=== PATIENT | female | born 2000 | race Caucasian/White ===

== ENCOUNTER → 2022-04-03 16:07 | Outpatient (CLI) | payer OTHER, SELFPAY ==
--- NOTE | 2022-04-03 16:10 | DI.ECHO.S_ITS ---
[facility] +---------+ : : [address] : [place] : : : : [id number] : : : : Phone: [phone]+ Echocardiogram Report + + :Name: CRYSTAL LOUIS Study Date: 04/03/2022 Height: 65 in : :[facility] ReadingLocation: Weight: 157 lb : : Gender: Female BSA: 1.8 m2 : :: 2000 Age: 21 yrs BP: 125/87 mmHg: :Reason For Study: DYSPNEA : :Ordering Physician: RANI, : :RG Performed By: Anna Birggs : :Referring: RG BUI : + + Interpretation Summary 1) Normal left ventricular thickness, size, wall motion, and systolic function (EF 60-65%). 2) Normal right ventricular size and function. 3) No significant valvular abnormalities. 4) No prior Echo available for comparison. Procedure: A two-dimensional transthoracic echocardiogram with color flow and Doppler was performed. The study quality was technically adequate. There is no prior echocardiogram noted for this patient. The patient was in sinus rhythm with heart rates between 72-92 bpm during the exam. Left Ventricle: The left ventricle is normal in size and wall thickness. The ejection fraction is estimated to be 60-65%. Left ventricular systolic function appears normal without focal wall motion abnormalities. Right Ventricle: The right ventricle is normal in size and function. Atria: The left atrial size is normal. Right atrial size is normal. There is no Doppler evidence for an interatrial shunt. Mitral Valve: The mitral valve is normal in structure and function. There is trace mitral regurgitation. Aortic Valve: The aortic valve is trileaflet. The aortic valve opens well. There is no aortic valve stenosis. There is no aortic regurgitation. Tricuspid Valve: The tricuspid valve is normal in structure and function. There is mild tricuspid regurgitation. The right ventricular systolic pressure is estimated to be at least 17 mmHg based on an estimated right atrial pressure of 3 mm Hg. Pulmonic Valve: The pulmonic valve leaflets are thin and pliable; valve motion is normal. There is trace pulmonic regurgitation. Great Vessels: The aortic root is normal size. The dimensions of the ascending aorta are normal. The IVC is of normal diameter and collapses greater than 50% with a sniff. This suggests a low right atrial pressure of 3 mm Hg. Pericardium/ Pleura There is no pericardial effusion. There is no pleural effusion. MMode/2D Measurements & Calculations LVIDd: 4.4 cm LVOT diam: 2.0 cm LVIDs: 3.0 cm Ao root diam: 2.7 cm FS: 30.6 % asc Aorta Diam: 2.6 cm IVSd: 0.66 cm Ao Arch Diam (Prox Trans): 2.2 cm LVPWd: 0.75 cm LV montague. diameter/BSA (cm/m^2): 2.5 LV sys. diameter/BSA (cm/m^2): 1.7 LA A2 area: 15.0 cm2 RA long axis: 3.6 cm LA A4 area: 16.1 cm2 RA area: 10.2 cm2 LA length (vol): 4.4 cm RA vol: 24.4 ml LA vol: 46.4 ml RA : 13.7 ml/m2 LA vol index: 26.0 ml/m2 IVC diam: 1.4 cm RVD1 (basal): 3.2 cm RVD2 (mid): 3.1 cm TAPSE: 2.0 cm Doppler Measurements & Calculations Ao V2 max: 128.0 cm/sec LVOT Max Alan: 86.1 cm/sec Ao V2 mean: 90.2 cm/sec LV V1 max P.0 mmHg Ao max P.6 mmHg LV V1 VTI: 17.5 cm Ao mean P.6 mmHg REBECCA(I,D): 2.4 cm2 Ao V2 VTI: 23.0 cm REBECCA(V,D): 2.1 cm2 sev ratio: 0.76 REBECCA indexed to BSA (cm^2/m^2): 1.4 MV E max alan: 85.3 cm/sec TR max alan: 186.6 cm/sec MV A max alan: 50.4 cm/sec TR max P.9 mmHg MV E/A: 1.7 PA V2 max: 103.3 cm/sec Med Peak E' Alan: 13.4 cm/sec PA V2 mean: 65.0 cm/sec E/E' med: 6.4 PA mean P.0 mmHg Lat Peak E' Alan: 21.5 cm/sec PA pr(Accel): 17.3 mmHg E/E' lat: 4.0 E/e' average: 5.2 MV dec time: 0.19 sec SV(LVOT): 55.9 ml Reading Physician:05:04 PM
== END ==
PROVIDERS: Referring Provider Internal Medicine Cardiovascular Disease; Visit Provider Internal Medicine Cardiovascular Disease
DX: I07.1 Rheumatic tricuspid insufficiency (principal); R06.00 Dyspnea, unspecified
CPT/HCPCS: 93306

== ENCOUNTER 2022-11-17 17:53 | Emergency (ER) | payer OTHER, SELFPAY ==
[2022-11-17 18:02] VITALS: BP 137/66; PULSE 102; RESP 16; TEMP 36.8; O2SAT 100; BMI 28.6
--- NOTE | 2022-11-17 18:12 | DI.US.S_ITS ---
PROCEDURE: US OB <= 14 WEEKS FETUS INDICATIONS: FIRST TRIMESTER VAGINAL BLEEDING TECHNIQUE: Real-time scanning was performed of the fetus and maternal pelvic organs, with image documentation. Endovaginal scanning was also performed to better visualize the fetus and maternal ovaries. COMPARISON: None. FINDINGS: No evidence of intrauterine . Normal size and appearance of the uterus. Normal thickness endometrium. Ovaries normal. IMPRESSION: Normal exam with no evidence of intrauterine . We strive to produce accurate, complete, and clear reports of imaging services. To assist us in improving patient care, this report was composed using standard report templates and voice recognition software. Therefore, it may contain abnormal punctuation, insertions and/or omissions. Occasional wrong-word or sound-alike substitutions may occur. Though we review the report and make efforts to correct it, we do recommend that the report be read carefully in proper context to recognize any text inaccuracies. Dictated by: Juan Alberto Rodriguez M.D. on 11/17/2022 at 19:02 Approved by: Juan Alberto Rodriguez M.D. on 11/17/2022 at 19:03
[2022-11-17 19:24] VITALS: PULSE 99; O2SAT 98
[2022-11-17 19:25] VITALS: BP 132/83; PULSE 98; O2SAT 100
--- NOTE | 2022-11-17 19:28 | PC.NURSE ---
Pt reports hx of 2 prior miscarriages in May of 2022 and December of 2021.
[2022-11-17 19:29] LABS: Blood Urea Nitrogen 19 mg/dL (7-17); Calcium 9.5 mg/dL (8.4-10.2); Carbon Dioxide 24 mmol/L (22-32); Chloride 103 mmol/L (98-107); Estimated Glomerular Filt Rate > 60 mL/min (>60); Glucose 91 mg/dL (70-100); HEMOLYSIS < 15 (0-50); Potassium 3.9 mmol/L (3.4-5.1); Sodium 141 mmol/L (137-145)
[2022-11-17 19:36] LABS: Add Manual Diff / Slide Review NO; Basophils Absolute Auto 100 /uL (0-100); Basophils Percent Auto 1.1 % (0-2); Eosinophils Absolute Auto 300 /uL (0-450); Eosinophils Percent Auto 3.7 % (2-4); Hematocrit 42.2 % (36-46); Hemoglobin 14.4 g/dL (12.0-16.0); Lymphocytes Absolute Auto 2600 /uL (1100-4500); Lymphocytes Percent Auto 32.8 % (25-40); Mean Corpuscular HGB Conc 34.1 % (30-36); Mean Corpuscular Hemoglobin 29.3 PG (26-34); Mean Corpuscular Volume 85.9 fL (80-100); Monocytes Absolute Auto 700 /uL (0-900); Monocytes Percent Auto 9.4 % (3-14); Neutrophils Absolute Auto 4200 /uL (1500-7000); Platelet Count 279 X10^3/uL (150-400); Red Blood Cell Count 4.91 X10^6/uL (4.0-5.2); Red Cell Distribution Width 13.6 % (11.6-14.8); White Blood Cell Count 7.9 X10^3/uL (4.5-11.0)
[2022-11-17 19:46] LABS: HCG Quantitative /Beta subunit < 2.4 mIU/mL
--- NOTE | 2022-11-17 20:31 | ED.GENADULT ---
HPI - General Adult General Chief complaint: Vaginal Bleeding Stated complaint: Thinks having miscarriage Time Seen by Provider: 11/17/22 19:38 Source: patient Mode of arrival: Ambulatory Limitations: no limitations History of Present Illness HPI narrative: Patient is an otherwise healthy 22-year-old female. Is a who states that she is approximately 5 weeks EGA secondary to her last menstrual period. She had an initial positive home test last week. For the past couple days she has had some very minor spotting which she states is less than a menstrual cycle but started to have some cramping earlier today. No GI symptoms. No urinary symptoms. No vomiting. No fevers. Her prior 2 pregnancies ended in a spontaneous miscarriage Related Data Home Medications Medication Instructions Recorded Confirmed etonogestrel 68 mg subdermal 1 implant subdermal CONT 04/20/22 06/14/22 implant (Nexplanon) Allergies Allergy/AdvReac Type Severity Reaction Status Date / Time bendaryl AdvReac Mild racing Uncoded 11/17/22 18:02 heart Review of Systems Constitutional Constitutional: Reports system reviewed and no additional complaints, except as documented Gastrointestinal Gastrointestinal: Reports system reviewed and no additional complaints, except as documented Genitourinary Genitourinary: Reports system reviewed and no additional complaints, except as documented Patient History Medical History Lymph node disorder Miscarriage Social History household members: spouse Smoking Status: Never smoker Smoking Status: Never smoker Substance Use Type: does not use Exam Initial Vital Signs Initial Vital Signs: Vital Signs Temperature 98.2 F 11/17/22 18:02 Pulse Rate 102 H 11/17/22 18:02 Respiratory Rate 16 11/17/22 18:02 Blood Pressure 137/66 11/17/22 18:02 Pulse Oximetry 100 11/17/22 18:02 Oxygen Delivery Method 11/17/22 18:02 HENMD Head: normal to inspection and normocephalic GI Inspection: normal to inspection Skin General: no rashes or lesions noted Neuro General: patient alert, patient awake and moves all extremities Extrem General: capillary refill normal Course Orders Ordered: ED Orders 11/17/22 18:12 US OB <= 14 weeks fetus Stat 11/17/22 19:12 ABO RH Type Stat Basic Metabolic Panel Stat Complete Blood Count AUTO DIFF Stat HCG Quantitative /Beta subunit Stat Vital Signs Vital signs: Vital Signs - 8 hr 11/17/22 18:02 11/17/22 19:24 11/17/22 19:25 Temperature 98.2 F Pulse Rate 102 H 99 H Respiratory Rate 16 Blood Pressure 137/66 132/83 Pulse Oximetry 100 98 Oxygen Delivery Method Room Air 11/17/22 19:25 11/17/22 20:51 Temperature Pulse Rate 98 H 76 Respiratory Rate Blood Pressure 121/75 Pulse Oximetry 100 100 Oxygen Delivery Method Room Air Medical Decision Making Differential Diagnosis Differential Diagnosis: Ectopic, miscarriage, threatened , and others Condition is:: Well Controlled Condition is at treatment goal?: Yes Lab Data Lab results reviewed: Yes I reviewed the patient's lab results. Result diagrams: 11/17/22 19:12 11/17/22 19:12 Labs: Lab Results 11/17/22 11/17/22 11/17/22 Range/Units 19:12 19:12 19:12 WBC 7.9 (4.5-11.0) X10^3/uL RBC 4.91 (4.0-5.2) X10^6/uL Hgb 14.4 (12.0-16.0) g/dL Hct 42.2 (36-46) % MCV 85.9 (80-100) fL MCH 29.3 (26-34) PG MCHC 34.1 (30-36) % RDW 13.6 (11.6-14.8) % Plt Count 279 (150-400) X10^3/uL Neut % (Auto) 53.0 (50-75) % Lymph % (Auto) 32.8 (25-40) % [place] % (Auto) 9.4 (3-14) % Eos % (Auto) 3.7 (2-4) % Baso % (Auto) 1.1 (0-2) % Neut # (Auto) 4200 (3261-1797) /uL Lymph # (Auto) 2600 (0956-0065) /uL [place] # (Auto) 700 (0-900) /uL Eos # (Auto) 300 (0-450) /uL Baso # (Auto) 100 (0-100) /uL Sodium 141 (137-145) mmol/L Potassium 3.9 (3.4-5.1) mmol/L Chloride 103 (98-107) mmol/L Carbon Dioxide 24 (22-32) mmol/L BUN 19 H (7-17) mg/dL Creatinine 0.73 (0.52-1.04) mg/dL Estimated GFR > 60 (>60) mL/min BUN/Creatinine Ratio 26.0 H (6-22) Glucose 91 (70-100) mg/dL Calcium 9.5 (8.4-10.2) mg/dL HCG, Quant < 2.4 mIU/mL Blood Type B Positive Point of Care Testing Test Results Negative Urine Dip Bedside Urine Glucose Negative Bedside Urine Bilirubin - Negative Bedside Urine Ketone - Negative Urine Specific [place] 1.03 Bedside Urine Occult Blood - Negative Bedside Urine pH 6.0 Bedside Urine Protein - Negative Bedside Urine Urobilinogen - Negative Bedside Urine Nitrite - Negative Bedside Urine Leukocytes - Negative Esterase Point of care testing: Point of Care Testing Test Results Negative Urine Dip Bedside Urine Glucose Negative Bedside Urine Bilirubin - Negative Bedside Urine Ketone - Negative Urine Specific [place] 1.03 Bedside Urine Occult Blood - Negative Bedside Urine pH 6.0 Bedside Urine Protein - Negative Bedside Urine Urobilinogen - Negative Bedside Urine Nitrite - Negative Bedside Urine Leukocytes - Negative Esterase Imaging Data US - OB: Radiologist's Impression: [place] [address] Ultrasound Report Signed Patient: Rika Medrano MR#: [id number] : 2000 Acct:[id number] Age/Sex: 22 / F Date of Service: 11/17/22 Loc: ED Accession Number: [id number] ?? Procedure: US OB <= 14 weeks fetus Ordering Provider: Eduardo Morrison D.O. PROCEDURE:? US OB <= 14 WEEKS FETUS ? INDICATIONS:? FIRST TRIMESTER VAGINAL BLEEDING ? TECHNIQUE:? Real-time scanning was performed of the fetus and maternal pelvic organs, with image documentation.? Endovaginal scanning was also performed to better visualize the fetus and maternal ovaries.? ? COMPARISON:? None. ? FINDINGS:? ? No evidence of intrauterine .? Normal size and appearance of the uterus.? Normal thickness endometrium.? Ovaries normal. ? ? IMPRESSION:? Normal exam with no evidence of intrauterine . ? We strive to produce accurate, complete, and clear reports of imaging services. To assist us in improving patient care, this report was composed using standard report templates and voice recognition software. Therefore, it may contain abnormal punctuation, insertions and/or omissions. Occasional wrong-word or sound-alike substitutions may occur. Though we review the report and make efforts to correct it, we do recommend that the report be read carefully in proper context to recognize any text inaccuracies. ? ? ? Dictated by: Juan Alberto Rodriguez M.D. on 11/17/2022 at 19:02 ? ? Approved by: Juan Alberto Rodriguez M.D. on 11/17/2022 at 19:03?? MDM Narrative Medical decision making narrative: Rh positive. Urine test negative. Beta hCG is negative. Ultrasound today shows no indication of a intrauterine . Had a discussion with the patient regarding all of this. We did discuss the possibility of a very early however given her positive test last week and negative test today and negative beta HCG and ultrasound this is most likely a completed miscarriage. We discussed follow-up instructions with her primary doctor. We discussed return precautions. She expressed understanding and agreement. Discharge Plan Departure Patient Disposition: Home Clinical Impression: Complete miscarriage Instructions: DI for Miscarriage Activity Restrictions/Additional Instructions: I recommend that you contact your primary doctor for a follow-up. Return to the emergency department for any new symptoms. Prescriptions: No Action Nexplanon 68 mg implant 1 implant subdermal CONT Stand Alone Forms: Patient Portal/API
[2022-11-17 20:51] VITALS: BP 121/75; PULSE 76; O2SAT 100
== END 2022-11-17 20:52 | disposition home or self-care (01) ==
PROVIDERS: Emergency Provider Emergency Medicine
DX: O02.1 Missed abortion (principal)
CPT/HCPCS: 76801; 80048; 81003; 81025; 84702; 85025; 86900; 86901; 99282; 99284

== ENCOUNTER 2023-09-25 14:46 | Emergency (ER) | payer OTHER, SELFPAY ==
[2023-09-25 14:50] VITALS: BP 130/79; PULSE 108; RESP 18; TEMP 36.8; O2SAT 100; BMI 29.1
[2023-09-25 15:05] LABS: Appearance Urine UA CLEAR; Bilirubin Urine UA NEGATIVE (NEGATIVE); Color Urine UA YELLOW; Glucose Urine UA NEGATIVE (Negative); Ketones Urine UA NEGATIVE (NEGATIVE); Leukocyte Esterase Urine UA 1+ (NEGATIVE); Nitrite Urine UA NEGATIVE (Negative); Occult Blood Urine UA NEGATIVE (Negative); Protein Urine UA NEGATIVE (Negative); Specific Gravity Urine UA 1.015 (1.000-1.035); Urobilinogen Urine UA 0.2 E.U./dL (0.2)
[2023-09-25 15:10] LABS: Pregnancy Test Urine Positive (Negative)
--- NOTE | 2023-09-25 15:12 | DI.US.S_ITS ---
PROCEDURE: US OB <= 14 WEEKS FETUS INDICATIONS: + preg, abd cramping OUTSIDE/PRIOR DATING DATA: Last menstrual period (LMP): 07/25/2023. LMP-based estimated date of delivery (MICHAEL): 04/30/2024. First dating scan (date and location): 09/25/2023. Estimated date of delivery (MICHAEL) from first dating scan: 05/27/2024. TECHNIQUE: Real-time scanning was performed of the fetus and maternal pelvic organs, with image documentation. Endovaginal scanning was also performed to better visualize the fetus and maternal ovaries. COMPARISON: [facility], , OB <= 14 WEEKS FETUS, 11/17/2022, 18:23. FINDINGS: Embryo: A possible gestational sac measuring 0.3 cm corresponds with 5 weeks 0 days. Possible double decidual sign. Heart rate: None Maternal organs: The left adnexa demonstrates a hypervascular mass measuring 2.2 x 1.3 x 1.6 cm. IMPRESSION: 1. The left adnexa demonstrates a hypervascular mass measuring 2.2 x 1.3 x 1.6 cm. Differential diagnosis includes a corpus luteal cyst or an ectopic . Please correlate with beta HCG. 2. Questionable intrauterine gestational sac. Findings were discussed with Dr. Giron at 15:36 on 09/25/2023. Dictated by: Jevon Muhammad M.D. on 09/25/2023 at 15:31 Approved by: Jevon Muhammad M.D. on 09/25/2023 at 15:37
[2023-09-25 15:18] LABS: RBC Urine None Seen (0-5/HPF); WBC Urine 0-1/HPF (0-5/HPF)
[2023-09-25 15:19] LABS: Bacteria Urine None Seen; Culture Indicated Urine Cult Not Indicated; Squamous Epithelial Cell Urine 0-1 /HPF (0-5/HPF)
--- NOTE | 2023-09-25 15:27 | ED_ITS ---
HPI - General Chief complaint: OB/Uterine Contractions Stated complaint: 8wk preg painful cramps T-2 increasing Time Seen by Provider: 09/25/23 15:03 Source: patient Mode of arrival: Ambulatory Limitations: no limitations History of Present Illness HPI Narrative: 23yoF at an estimated 8 weeks gestational age by last menstrual. Presents by private vehicle from home for lower abdominal cramping in early . No establish IUP. Patient states that since she is had 3 prior miscarriages the cramping has become very worrisome to her and she wanted to be evaluated in the emergency department. Related Data Home Medications Medication Instructions Recorded Confirmed etonogestrel 68 mg subdermal 1 implant subdermal CONT 04/20/22 06/14/22 implant (Nexplanon) Allergies Allergy/AdvReac Type Severity Reaction Status Date / Time diphenhydramine Allergy Fainting Verified 09/25/23 15:25 [From Nehal] Review of Systems Review of Systems Narrative: Negative except as noted above Exam Initial Vital Signs Initial Vital Signs: Vital Signs Temperature 98.2 F 09/25/23 14:50 Pulse Rate 108 H 09/25/23 14:50 Respiratory Rate 18 09/25/23 14:50 Blood Pressure 130/79 09/25/23 14:50 Pulse Oximetry 100 09/25/23 14:50 Oxygen Delivery Method Room Air 09/25/23 14:50 Const: Awake, alert, no acute distress, nontoxic appearing Eyes: PERRL, EOMI, conjunctiva normal ENT: Atraumatic, dentition normal, mucous membranes moist Cardiac: regular rate, regular rhythm RESP: unlabored, clear bilaterally, no wheezing GI: Atraumatic, soft, nontender, nondistended, no rebound, no guarding MSK: Atraumatic, full range of motion, pulses equal Skin: Warm, Dry, intact, no rashes Neuro: AO x3, CN II-XII grossly intact, moves all extremities Psych: affect normal, mood normal, not suicidal, not homicidal Course Orders Ordered: ED Orders 09/25/23 14:55 Test Urine Stat Urinalysis Screen (Dip Only) Stat Urine Microscopic Stat 09/25/23 15:12 US OB <= 14 weeks fetus Stat 09/25/23 15:38 HCG Quantitative /Beta subunit Stat Vital Signs Vital signs: Vital Signs - 8 hr 09/25/23 14:50 Temperature 98.2 F Pulse Rate 108 H Respiratory Rate 18 Blood Pressure 130/79 Pulse Oximetry 100 Oxygen Delivery Method Room Air MDM - OB/Uterine Contractions Differential Diagnosis Differential diagnosis: Likely other (early miscarriage, early , ectopic ) Lab Data Labs: Lab Results 09/25/23 09/25/23 Range/Units 14:55 15:38 HCG, Quant 847.4 mIU/mL Urine Color Yellow Urine Appearance Clear Urine pH 5.0 (4.5-8.0) Ur Specific [place] 1.015 (1.000-1.035) Urine Protein Negative (Negative) Urine Glucose (UA) Negative (Negative) g/dL Urine Ketones Negative (NEGATIVE) Urine Occult Blood Negative (Negative) Urine Nitrate Negative (Negative) Urine Bilirubin Negative (NEGATIVE) Urine Urobilinogen 0.2 (0.2) E.U./dL Ur Leukocyte Esterase 1+ H (NEGATIVE) Urine RBC None seen (0-5/HPF) Urine WBC 0-1/hpf (0-5/HPF) Ur Squamous Epith Cells 0-1 /hpf (0-5/HPF) Urine Bacteria None seen (None) Ur Culture Indicated? Cult not indicated Urine Test Positive H (Negative) MDM Narrative Medical decision making narrative: Well-appearing and nontoxic female presenting for cramping in early . She is blood type B positive from previous ER visits. Abdomen is soft, no significant tenderness to light or deep palpation. Laboratory work shows hCG of 847. Ultrasound reviewed, I discussed with Radiology, there is a vascular str ucture on the left ovary that could be a corpus luteal cyst, but ectopic can not be ruled out. There is a possible 5 week gestational sac in the uterus, but it is indeterminate. I discussed all results of labs and imaging with OBGYN Dr. Gupta, who stated that at this time with an hCG quant of 847 it is too early to tell if this is an ectopic or benign finding. He recommended ectopic precautions with hCG recheck in 48 hours. He took down her information and we will make sure that she follows up in clinic. Discussed OBGYN recommendations with patient at bedside. She will make sure to call his office tomorrow morning to ensure that she has a scheduled follow up time. She can return to the emergency department in 48 hours for repeat hCG check. ED return precautions discussed at bedside. Patient expressed understanding of the plan and is in agreement at this time. All questions answered at the time of discharge. Discharge Plan Departure Patient Disposition: Home Clinical Impression: Abdominal cramping affecting , Abnormal ultrasound of uterus Instructions: DI for Ectopic Activity Restrictions/Additional Instructions: YOU WERE SEEN TODAY FOR CRAMPING IN EARLY . YOUR HCG QUANT IS 847, YOUR BLOOD TYPE IS B POSITIVE. YOUR ULTRASOUND WAS ABNORMAL, THERE MAY POSSIBLY BE AN ECTOPIC , HOWEVER THIS COULD BE A NORMAL FINDING IN EARLY . YOUR HCG LEVELS ARE TOO LOW TO TELL AT THIS TIME. IT IS EXTREMELY IMPORTANT THAT YOU FOLLOW UP IN 48 HOURS FOR A RECHECK OF YOUR HCG. DR. GUPTA OF [facility] HAS BEEN GIVEN YOUR INFORMATION AND YOU SHOULD REACH OUT TO HIS CLINIC FOR FOLLOW UP. Prescriptions: No Action Nexplanon 68 mg implant 1 implant subdermal CONT Referrals: Miscellaneous,Doctor, [Primary Care Provider] - Pawan Gupta MD [Physician] - Stand Alone Forms: Patient Portal/API
[2023-09-25 16:28] LABS: HCG Quantitative /Beta subunit 847.4 mIU/mL
[2023-09-25 17:19] VITALS: PULSE 101; RESP 20
== END 2023-09-25 17:21 | disposition home or self-care (01) ==
PROVIDERS: Emergency Provider Emergency Medicine
DX: O26.899 Other specified pregnancy related conditions, unspecified trimester (principal); R10.9 Unspecified abdominal pain; R93.89 Abnormal findings on diagnostic imaging of other specified body structures; Z3A.00 Weeks of gestation of pregnancy not specified
CPT/HCPCS: 76801; 76817; 81003; 81015; 81025; 84702; 99281; 99283

== ENCOUNTER → 2023-09-27 11:22 | Outpatient (CLI) | payer OTHER, SELFPAY ==
[2023-09-27 12:21] LABS: HCG Quantitative /Beta subunit 1692.4 mIU/mL
[2023-09-27 12:22] LABS: Progesterone, Total 7.55 ng/mL
== END ==
PROVIDERS: Referring Provider Obstetrics & Gynecology; Visit Provider Obstetrics & Gynecology
DX: O20.0 Threatened abortion (principal)
CPT/HCPCS: 36415; 84144; 84702

== ENCOUNTER → 2023-10-01 16:41 | Outpatient (CLI) | payer OTHER, SELFPAY | PROVIDERS: Referring Provider Obstetrics & Gynecology; Visit Provider Obstetrics & Gynecology | DX: O26.899 Other specified pregnancy related conditions, unspecified trimester (principal); R10.9 Unspecified abdominal pain; O20.0 Threatened abortion | CPT/HCPCS: 36415; 84702 ==

== ENCOUNTER 2023-10-23 17:52 | Emergency (ER) | payer OTHER, SELFPAY ==
[2023-10-23 17:58] VITALS: BP 125/82; PULSE 89; RESP 18; TEMP 36.8; O2SAT 100; BMI 27.9
[2023-10-23 18:46] LABS: RBC Urine 0-1/HPF (0-5/HPF); WBC Urine 1-5/HPF (0-5/HPF)
[2023-10-23 18:47] LABS: Bacteria Urine Occasional (0-1); Culture Indicated Urine Specimen Cultured; Squamous Epithelial Cell Urine 1-5 /HPF (0-5/HPF)
--- NOTE | 2023-10-23 19:39 | DI.US.S_ITS ---
PROCEDURE: US OB <= 14 WEEKS FETUS INDICATIONS: ABDOMINAL PAIN OUTSIDE/PRIOR DATING DATA: Last menstrual period (LMP): 07/25/2023. LMP-based estimated date of delivery (MICHAEL): 04/30/2024. First dating scan (date and location): 09/25/2023, [facility]. Estimated date of delivery (MICHAEL) from first dating scan: 05/27/2024. The calculations are made using the ultrasound MICHAEL of 05/27/2024. TECHNIQUE: Real-time scanning was performed of the fetus and maternal pelvic organs, with image documentation. Endovaginal scanning was also performed to better visualize the fetus and maternal ovaries. COMPARISON: [facility], US, US OB <= 14 WEEKS FETUS, 10/16/2023, 12:05. FINDINGS: Embryo: There is a single intrauterine gestation with yolk sac visualized. The crown-rump length measures 2.0 cm corresponding to estimated age of 8 weeks, 4 days. Heart rate: 173 beats per minute There is some debris seen within the gestational sac. There is heterogeneous area seen at the placental fundus measuring 1.8 x 0.8 x 1.0 cm which may represent perigestational collection. Maternal organs: Right ovary is normal in size and morphology. In the left abnormal axial region there is again seen a hypoechoic area measuring 1.8 x 1.4 by 0.9 cm, previously measuring 2.2 x 1.6 x 1.3 cm. Trace fluid is seen within the cervix. IMPRESSION: Single intrauterine gestation with visible yolk sac and a crown-rump length of 2.0 cm corresponding to estimated age of 8 weeks, 4 days. Probable fundal perigestational bleed measuring up to 1.8 cm. Decreased size of left adnexal hypoechoic masslike area since 09/25/2023, possible corpus luteum cyst. Recommend gynecological consultation and short interval ultrasound follow-up. We strive to produce accurate, complete, and clear reports of imaging services. To assist us in improving patient care, this report was composed using standard report templates and voice recognition software. Therefore, it may contain abnormal punctuation, insertions and/or omissions. Occasional wrong-word or sound-alike substitutions may occur. Though we review the report and make efforts to correct it, we do recommend that the report be read carefully in proper context to recognize any text inaccuracies. Approved by: Sandie Rogel M.D. on 10/23/2023 at 22:26
--- NOTE | 2023-10-23 19:39 | ED_ITS ---
HPI - General Adult General Chief complaint: Abdominal Pain Stated complaint: 9wks ABD cramping T-1 Time Seen by Provider: 10/23/23 18:24 Source: patient Mode of arrival: Ambulatory History of Present Illness HPI narrative: Patient is a 23-year-old female. Approximately 9 weeks EGA based on last menstrual. . She has had multiple miscarriages in the past and she is already seen OB during this . She has a known intrauterine . Last evening she had very severe lower abdominal discomfort. It seemed to be located suprapubic and right lower quadrant. It lasted approximately 2 hours. She noticed some blood in her urine this morning. No cramping. No fevers. No vomiting. Was told to come to the emergency department by her OB provider. Related Data Home Medications Medication Instructions Recorded Confirmed vitamin-ferrous sulfate tab PO 10/09/23 10/16/23 27 mg iron-folic acid 0.8 mg tablet Previous Rx's Medication Instructions Recorded progesterone micronized 200 mg 200 mg PO BID #60 caps 10/01/23 capsule ondansetron 4 mg disintegrating 4 mg PO Q6H PRN nausea and 10/16/23 tablet vomiting #20 tabs Allergies Allergy/AdvReac Type Severity Reaction Status Date / Time lavender (Lavandula Allergy Intermediate Hives Verified 10/16/23 11:29 angustifolia) adhesive Allergy Mild Rash Verified 10/16/23 11:29 diphenhydramine AdvReac Fainting Verified 10/16/23 11:29 [From Benadryl] Review of Systems Constitutional Constitutional: Reports system reviewed and no additional complaints, except as documented Gastrointestinal Gastrointestinal: Reports system reviewed and no additional complaints, except as documented Genitourinary Genitourinary: Reports system reviewed and no additional complaints, except as documented Integumentary/Breasts Skin/Breast: Reports system reviewed and no additional complaints, except as documented Patient History Medical History Eczema GERD (gastroesophageal reflux disease) Shortness of breath Prolonged QT interval syndrome Miscarriage Lymph node disorder Family History (Updated 10/09/23 @ 12:24 by Ailyn Celaya RN) Father Heart disease Gum disease Family estrangement Family/Other Diabetes mellitus Social History marital status: number of children: 0 household members: spouse lives independently: Yes caregiver/support person: No housing: house pets and animals: Yes (cat, dogs, snake) education level: college (some college) occupational status: employed ([employer]) current occupational exposures/hazards: Yes special leander needs: No travel history: over 6 months ago seatbelt use: always helmet use: Yes water heater temp set < 120 deg: Yes working smoke detector in home: Yes fire extinguisher in home: No carbon monox detector in home: Yes firearms in home: No do you feel safe at home: Yes Smoking Status: Never smoker second hand exposure: No alcohol intake: never substance use type: does not use during the past year weight has: remained stable well-balanced diet: daily or most days daily servings fruits/ve-4 caffeine: No (aggravates heart palpitations) Type(s) of exercise: weight lifting frequency: 5-6 times per week Smoking Status: Never smoker Substance Use Type: does not use Exam Initial Vital Signs Initial Vital Signs: Vital Signs Temperature 98.2 F 10/23/23 17:58 Pulse Rate 89 10/23/23 17:58 Respiratory Rate 18 10/23/23 17:58 Blood Pressure 125/82 10/23/23 17:58 Pulse Oximetry 100 10/23/23 17:58 Oxygen Delivery Method Room Air 10/23/23 17:58 Const General: cooperative, comfortable and No ill appearing HENMT Head: normal to inspection and normocephalic GI Inspection: normal to inspection and non-distended Skin General: no rashes or lesions noted Neuro General: patient alert, patient awake and moves all extremities Extrem General: normal to inspection and capillary refill normal Course Orders Ordered: ED Orders 10/23/23 18:05 Urine Culture Stat Urine Microscopic Stat 10/23/23 19:39 US OB <= 14 weeks fetus Stat Vital Signs Vital signs: Vital Signs - 8 hr 10/23/23 19:51 10/23/23 20:00 10/23/23 20:00 Pulse Rate 85 83 Respiratory Rate 18 Blood Pressure 117/72 Pulse Oximetry 100 100 Oxygen Delivery Method 10/23/23 22:41 10/23/23 22:41 Pulse Rate 76 Respiratory Rate Blood Pressure 111/72 Pulse Oximetry 100 Oxygen Delivery Method Room Air Medical Decision Making Lab Data Lab results reviewed: Yes I reviewed the patient's lab results. Labs: Lab Results 10/23/23 Range/Units 18:05 Urine RBC 0-1/hpf (0-5/HPF) Urine WBC 1-5/hpf (0-5/HPF) Ur Squamous Epith Cells 1-5 /hpf (0-5/HPF) Urine Bacteria Occasional (0-1) (None) Ur Culture Indicated? Specimen cultured Point of Care Testing Test Results Positive Urine Dip Bedside Urine Glucose Negative Bedside Urine Bilirubin - Negative Bedside Urine Ketone - Negative Urine Specific [place] 1.030 Bedside Urine Occult Blood - Negative Bedside Urine pH 6.0 Bedside Urine Protein - Negative Bedside Urine Urobilinogen - Negative Bedside Urine Nitrite - Negative Bedside Urine Leukocytes + 70 Esterase Point of care testing: Point of Care Testing Test Results Positive Urine Dip Bedside Urine Glucose Negative Bedside Urine Bilirubin - Negative Bedside Urine Ketone - Negative Urine Specific [place] 1.030 Bedside Urine Occult Blood - Negative Bedside Urine pH 6.0 Bedside Urine Protein - Negative Bedside Urine Urobilinogen - Negative Bedside Urine Nitrite - Negative Bedside Urine Leukocytes + 70 Esterase Imaging Data US - OB: Radiologist's Impression: PROCEDURE: US OB <= 14 WEEKS FETUS INDICATIONS: ABDOMINAL PAIN OUTSIDE/PRIOR DATING DATA: Last menstrual period (LMP): 07/25/2023. LMP-based estimated date of delivery (MICHAEL): 04/30/2024. First dating scan (date and location): 09/25/2023, [facility]. Estimated date of delivery (MICHAEL) from first dating scan: 05/27/2024. The calculations are made using the ultrasound MICHAEL of 05/27/2024. TECHNIQUE: Real-time scanning was performed of the fetus and maternal pelvic organs, with image documentation. Endovaginal scanning was also performed to better visualize the fetus and maternal ovaries. COMPARISON: [facility], US, US OB <= 14 WEEKS FETUS, 10/16/2023, 12:05. FINDINGS: Embryo: There is a single intrauterine gestation with yolk sac visualized. The crown-rump length measures 2.0 cm corresponding to estimated age of 8 weeks, 4 days. Heart rate: 173 beats per minute There is some debris seen within the gestational sac. There is heterogeneous area seen at the placental fundus measuring 1.8 x 0.8 x 1.0 cm which may represent perigestational collection. Maternal organs: Right ovary is normal in size and morphology. In the left abnormal axial region there is again seen a hypoechoic area measuring 1.8 x 1.4 by 0.9 cm, previously measuring 2.2 x 1.6 x 1.3 cm. Trace fluid is seen within the cervix. IMPRESSION: Single intrauterine gestation with visible yolk sac and a crown- rump length of 2.0 cm corresponding to estimated age of 8 weeks, 4 days. Probable fundal perigestational bleed measuring up to 1.8 cm. Decreased size of left adnexal hypoechoic masslike area since 09/25/2023, possible corpus luteum cyst. Recommend gynecological consultation and short interval ultrasound follow-up. MDM Narrative Medical decision making narrative: Patient is Rh positive. Ultrasound shows a single IUP. With the appropriate cardiac activity. Patient does have bacteria in her urine. Urine cultures ordered. We will wait for culture before starting any antibiotics. No further workup required here in the emergency department. I do have low suspicion for appendicitis based on her exam today. She currently has no right lower quadrant abdominal pain. I feel given her presentation band her history that the risks of obtaining a CT scan at this point in her far outweigh any benefit given my suspicion for any other acute intra-abdominal surgical issues. Will discharge patient home with instructions to continue all of her scheduled medical appointments. He was given return precautions. She expressed understanding and agreement. Discharge Plan Departure Patient Disposition: Home Clinical Impression: Abdominal pain during Instructions: DI for Abdominal Pain-Adult Activity Restrictions/Additional Instructions: Continue to take all of your medications as directed. Keep all scheduled medical appointments. Contact your OB provider for a follow-up. Return to the emergency department for new or worsening symptoms. Prescriptions: No Action progesterone micronized 200 mg capsule 200 mg PO BID Qty: 60 2RF ondansetron 4 mg tablet,disintegrating 4 mg PO Q6H PRN (Reason: nausea and vomiting) Qty: 20 2RF vit-ferrous sulfat-FA 27 mg iron- 0.8 mg tablet PO Referrals: ProviderVickie [Primary Care Provider] - Stand Alone Forms: Patient Portal/API
[2023-10-23 19:51] VITALS: PULSE 85; O2SAT 100
[2023-10-23 20:00] VITALS: BP 117/72; PULSE 83; RESP 18; O2SAT 100
[2023-10-23 22:41] VITALS: BP 111/72; PULSE 76; O2SAT 100
== END 2023-10-23 22:45 | disposition home or self-care (01) ==
PROVIDERS: Emergency Medicine; Emergency Provider Emergency Medicine
DX: O26.891 Other specified pregnancy related conditions, first trimester (principal); R10.9 Unspecified abdominal pain; Z3A.09 9 weeks gestation of pregnancy
CPT/HCPCS: 76801; 76817; 76830; 81003; 81015; 81025; 87086; 99283

== ENCOUNTER → 2023-10-30 12:36 | Outpatient (CLI) | payer OTHER, SELFPAY ==
[2023-10-30 14:25] LABS: Add Manual Diff / Slide Review NO; Basophils Absolute Auto 0 /uL (0-100); Basophils Percent Auto 0.4 % (0-2); Eosinophils Absolute Auto 0 /uL (0-450); Eosinophils Percent Auto 0.7 % (2-4); Hematocrit 40.4 % (36-46); Hemoglobin 13.8 g/dL (12.0-16.0); Lymphocytes Absolute Auto 2200 /uL (1100-4500); Lymphocytes Percent Auto 30.2 % (25-40); Mean Corpuscular HGB Conc 34.2 % (30-36); Mean Corpuscular Hemoglobin 29.1 PG (26-34); Mean Corpuscular Volume 85.1 fL (80-100); Monocytes Absolute Auto 600 /uL (0-900); Monocytes Percent Auto 8.4 % (3-14); Neutrophils Absolute Auto 4400 /uL (1500-7000); Neutrophils Percent Auto 60.3 % (50-75); Platelet Count 228 X10^3/uL (150-400); Red Blood Cell Count 4.75 X10^6/uL (4.0-5.2); Red Cell Distribution Width 14.2 % (11.6-14.8); White Blood Cell Count 7.4 X10^3/uL (4.5-11.0)
[2023-10-30 15:12] LABS: HCG Quantitative /Beta subunit 124880 mIU/mL
[2023-10-31 04:50] LABS: RPR Screen Non Reactive (Non Reactive)
[2023-10-31 09:10] LABS: Varicella IgG Antibody 1148 index (Immune >165)
[2023-11-01 18:59] LABS: Hepatitis B Surface Antigen NEGATIVE s/c (NEGATIVE); Rubella Antibody IgG 39.6 IU/mL (>15)
[2023-11-01 19:22] LABS: HIV 1 & 2 Ab/Ag 4th Gen Combo NEGATIVE (NEGATIVE)
[2023-11-02 18:20] LABS: Hep C Virus Ab w/Reflex Quant NEGATIVE s/c (NEGATIVE)
== END ==
LOC: LAB 12:37
PROVIDERS: Referring Provider Obstetrics & Gynecology; Visit Provider Obstetrics & Gynecology
DX: O20.0 Threatened abortion (principal)
CPT/HCPCS: 36415; 80055; 84702; 86787; 86803; 86850; 86900; 86901; 87086; 87389

== ENCOUNTER 2023-11-01 07:45 | Emergency (ER) | payer OTHER, MEDICAID, SELFPAY ==
[2023-11-01 07:51] VITALS: BP 126/81; PULSE 112; RESP 18; TEMP 36.9; O2SAT 98; BMI 28.3
--- NOTE | 2023-11-01 08:21 | DI.US.S_ITS ---
PROCEDURE: US OB <= 14 WEEKS FETUS INDICATIONS: CRAMPING, BLEEDING OUTSIDE/PRIOR DATING DATA: Last menstrual period (LMP): 07/25/2023. LMP-based estimated date of delivery (MICHAEL): 04/30/2024. First dating scan (date and location): 09/25/2023 at . Estimated date of delivery (MICHAEL) from first dating scan: 05/27/2024. The calculations are made using the working MICHAEL of 05/27/2024. TECHNIQUE: Real-time scanning was performed of the fetus, with image documentation and biometric measurements. Endovaginal scanning: Performed. COMPARISON: [facility], OB <= 14 WEEKS FETUS, 10/23/2023, 20:22. [facility], OB <= 14 WEEKS FETUS, 10/02/2023, 16:39. [facility], US OB <= 14 WEEKS FETUS, 09/25/2023, 15:39. [facility], OB <= 14 WEEKS FETUS, 10/16/2023, 12:05. FINDINGS: A normal intrauterine gestation sac and pole are no longer present. Heterogeneous soft tissue is seen within the endometrial cavity. Endometrial mid thickened measuring 32 mm. biometrics: n/a Clinically estimated gestational age: 10 weeks 2 days IMPRESSION: 1. Fetus is no longer visible, consistent with demise. 2. Thickened endometrium and heterogeneous soft tissue within the endometrial cavity. Cannot rule out retained products of conception. Recommend gynecological consultation and ultrasound follow-up. The result was discussed with Dr. Morrison. We strive to produce accurate, complete, and clear reports of imaging services. To assist us in improving patient care, this report was composed using standard report templates and voice recognition software. Therefore, it may contain abnormal punctuation, insertions and/or omissions. Occasional wrong-word or sound-alike substitutions may occur. Though we review the report and make efforts to correct it, we do recommend that the report be read carefully in proper context to recognize any text inaccuracies. Dictated by: Maurilio Sarmiento M.D. on 11/01/2023 at 9:09 Approved by: Maurilio Sarmiento M.D. on 11/01/2023 at 9:18
--- NOTE | 2023-11-01 08:22 | ED.GENADULT ---
HPI - General Adult General Chief complaint: Urogenital-Female Stated complaint: possible miscarriage Time Seen by Provider: 11/01/23 07:52 Source: patient Mode of arrival: Ambulatory History of Present Illness HPI narrative: Patient is a 23-year-old female. Has had multiple miscarriages in the past. She is Rh positive. Has a known IUP established by a ultrasound during this . She is being followed closely by Ob because of her multiple miscarriages. She was seen here in the emergency department several weeks ago for abdominal pain. Had a unremarkable ultrasound. She states since that time she has had some persistent cramping but it got better and is now worse again. She was also having some vaginal bleeding. No fevers. No vomiting. Related Data Home Medications Medication Instructions Recorded Confirmed vitamin-ferrous sulfate tab PO 10/09/23 10/16/23 27 mg iron-folic acid 0.8 mg tablet Previous Rx's Medication Instructions Recorded progesterone micronized 200 mg 200 mg PO BID #60 caps 10/01/23 capsule ondansetron 4 mg disintegrating 4 mg PO Q6H PRN nausea and 10/16/23 tablet vomiting #20 tabs Allergies Allergy/AdvReac Type Severity Reaction Status Date / Time lavender (Lavandula Allergy Intermediate Hives Verified 10/16/23 11:29 angustifolia) adhesive Allergy Mild Rash Verified 10/16/23 11:29 diphenhydramine AdvReac Fainting Verified 10/16/23 11:29 [From Benadryl] Review of Systems Constitutional Constitutional: Reports system reviewed and no additional complaints, except as documented Gastrointestinal Gastrointestinal: Reports system reviewed and no additional complaints, except as documented Genitourinary Genitourinary: Reports system reviewed and no additional complaints, except as documented Integumentary/Breasts Skin/Breast: Reports system reviewed and no additional complaints, except as documented Patient History Medical History Eczema GERD (gastroesophageal reflux disease) Shortness of breath Prolonged QT interval syndrome Miscarriage Lymph node disorder Family History (Updated 10/09/23 @ 12:24 by Ailyn Celaya RN) Father Heart disease Gum disease Family estrangement Family/Other Diabetes mellitus Social History marital status: number of children: 0 household members: spouse lives independently: Yes caregiver/support person: No housing: house pets and animals: Yes (cat, dogs, snake) education level: college (some college) occupational status: employed ([employer]) current occupational exposures/hazards: Yes special leander needs: No travel history: over 6 months ago seatbelt use: always helmet use: Yes water heater temp set < 120 deg: Yes working smoke detector in home: Yes fire extinguisher in home: No carbon monox detector in home: Yes firearms in home: No do you feel safe at home: Yes Smoking Status: Never smoker second hand exposure: No alcohol intake: never substance use type: does not use during the past year weight has: remained stable well-balanced diet: daily or most days daily servings fruits/ve-4 caffeine: No (aggravates heart palpitations) Type(s) of exercise: weight lifting frequency: 5-6 times per week Smoking Status: Never smoker Substance Use Type: does not use Exam Initial Vital Signs Initial Vital Signs: Vital Signs Temperature 98.5 F 11/01/23 07:51 Pulse Rate 112 H 11/01/23 07:51 Respiratory Rate 18 11/01/23 07:51 Blood Pressure 126/81 11/01/23 07:51 Pulse Oximetry 98 11/01/23 07:51 Oxygen Delivery Method Room Air 11/01/23 07:51 Const General: cooperative and No ill appearing HENMT Head: normal to inspection and normocephalic Resp Effort & Inspection: normal respiratory effort Cardio Rate: regular rate GI Inspection: non-distended Neuro General: patient alert and patient awake Course Orders Ordered: ED Orders 11/01/23 08:10 Urine Microscopic Stat 11/01/23 08:21 US OB <= 14 weeks fetus Stat 11/01/23 09:30 HCG Quantitative /Beta subunit Stat Vital Signs Vital signs: Vital Signs - 8 hr 11/01/23 07:51 11/01/23 09:26 11/01/23 09:27 Temperature 98.5 F Pulse Rate 112 H 99 H Respiratory Rate 18 Blood Pressure 126/81 117/73 Pulse Oximetry 98 100 Oxygen Delivery Method Room Air 11/01/23 09:27 11/01/23 09:30 11/01/23 09:30 Temperature Pulse Rate 88 91 H Respiratory Rate Blood Pressure 122/82 Pulse Oximetry 100 100 Oxygen Delivery Method Room Air Room Air 11/01/23 10:00 11/01/23 10:00 Temperature Pulse Rate 83 Respiratory Rate Blood Pressure 113/69 Pulse Oximetry 100 Oxygen Delivery Method Room Air Medical Decision Making Lab Data Lab results reviewed: Yes I reviewed the patient's lab results. Labs: Lab Results 11/01/23 Range/Units 08:10 Urine RBC None seen (0-5/HPF) Urine WBC 1-5/hpf (0-5/HPF) Ur Squamous Epith Cells 5-10 /hpf H (0-5/HPF) Urine Bacteria Moderate (10-30) H (None) Ur Culture Indicated? Cult not indicated Urine Dip Bedside Urine Glucose Negative Bedside Urine Bilirubin - Negative Bedside Urine Ketone - Negative Urine Specific [place] 1.015 Bedside Urine Occult Blood + Bedside Urine pH 7.0 Bedside Urine Protein - Negative Bedside Urine Urobilinogen +/- 1mg Bedside Urine Nitrite - Negative Bedside Urine Leukocytes - Negative Esterase Point of care testing: Urine Dip Bedside Urine Glucose Negative Bedside Urine Bilirubin - Negative Bedside Urine Ketone - Negative Urine Specific [place] 1.015 Bedside Urine Occult Blood + Bedside Urine pH 7.0 Bedside Urine Protein - Negative Bedside Urine Urobilinogen +/- 1mg Bedside Urine Nitrite - Negative Bedside Urine Leukocytes - Negative Esterase Imaging Data US - OB: Radiologist's Impression: PROCEDURE: US OB <= 14 WEEKS FETUS INDICATIONS: CRAMPING, BLEEDING OUTSIDE/PRIOR DATING DATA: Last menstrual period (LMP): 07/25/2023. LMP-based estimated date of delivery (MICHAEL): 04/30/2024. First dating scan (date and location): 09/25/2023 at . Estimated date of delivery (MICHAEL) from first dating scan: 05/27/2024. The calculations are made using the working MICHAEL of 05/27/2024. TECHNIQUE: Real-time scanning was performed of the fetus, with image documentation and biometric measurements. Endovaginal scanning: Performed. COMPARISON: [facility], OB <= 14 WEEKS FETUS, 10/23/2023, 20:22. [facility], OB <= 14 WEEKS FETUS, 10/02/2023, 16:39. [facility] OB <= 14 WEEKS FETUS, 09/25/2023, 15:39. [facility] OB <= 14 WEEKS FETUS, 10/16/2023, 12:05. FINDINGS: A normal intrauterine gestation sac and pole are no longer present. Heterogeneous soft tissue is seen within the endometrial cavity. Endometrial mid thickened measuring 32 mm. biometrics: n/a Clinically estimated gestational age: 10 weeks 2 days IMPRESSION: 1. Fetus is no longer visible, consistent with demise. 2. Thickened endometrium and heterogeneous soft tissue within the endometrial cavity. Cannot rule out retained products of conception. Recommend gynecological consultation and ultrasound follow-up. The result was discussed with Dr. Morrison. [facility] Narrative Medical decision making narrative: Patient is known to be Rh positive. She has a . Ultrasound today is concerning for miscarriage. I did discuss this with her. Her vital signs are unremarkable. Her hCG quantitative took awhile to result and was pending at the time of her discharge. The plan would have been to wait for this and talk with OB about recommendations for continued care however the patient states she would like to be discharged. This is not unreasonable. Her Ob can see everything that we did today in the emergency department. Will discharge patient home with return precautions. She expressed understanding and agreement. Discharge Plan Departure Patient Disposition: Home Clinical Impression: Incomplete miscarriage Instructions: Dealing With Miscarriage, DI for Miscarriage Activity Restrictions/Additional Instructions: Unfortunately the ultrasound today is consistent with a miscarriage. I am very sorry that this is happening once again. I recommend that you contact your OB doctor today to discuss follow-up. I would not be surprised if you continue to have some cramping and bleeding. If you start to get pain that is not controlled, fevers, bleeding more than several pads an hour for several hours in a row you do need to return to the emergency department for further evaluation. Prescriptions: No Action progesterone micronized 200 mg capsule 200 mg PO BID Qty: 60 2RF ondansetron 4 mg tablet,disintegrating 4 mg PO Q6H PRN (Reason: nausea and vomiting) Qty: 20 2RF vit-ferrous sulfat-FA 27 mg iron- 0.8 mg tablet PO Referrals: ProviderVickie [Primary Care Provider] - Stand Alone Forms: Patient Portal/API
[2023-11-01 08:28] LABS: Bacteria Urine Moderate (10-30); Culture Indicated Urine Cult Not Indicated; RBC Urine None Seen (0-5/HPF); Squamous Epithelial Cell Urine 5-10 /HPF (0-5/HPF); WBC Urine 1-5/HPF (0-5/HPF)
[2023-11-01 09:26] VITALS: PULSE 99; O2SAT 100
[2023-11-01 09:27] VITALS: BP 117/73; PULSE 88; O2SAT 100
[2023-11-01 09:30] VITALS: BP 122/82; PULSE 91; O2SAT 100
[2023-11-01 10:00] VITALS: BP 113/69; PULSE 83; O2SAT 100
[2023-11-01 10:37] LABS: HCG Quantitative /Beta subunit 26995 mIU/mL
[2023-11-01 10:45] VITALS: BP 115/76; PULSE 84; RESP 17; O2SAT 99
== END 2023-11-01 10:47 | disposition home or self-care (01) ==
PROVIDERS: Emergency Provider Emergency Medicine
DX: O03.4 Incomplete spontaneous abortion without complication (principal)
CPT/HCPCS: 36415; 76801; 76817; 81003; 81015; 84702; 99283; 99284

== ENCOUNTER → 2023-11-23 06:40 | Outpatient (CLI) | payer OTHER, MEDICAID, SELFPAY ==
--- NOTE | 2023-11-23 07:00 | DI.US.S_ITS ---
PROCEDURE: US PELVIC COMPLETE INDICATIONS: Retained POC follow up TECHNIQUE: Real-time scanning was performed of the pelvic organs, with image documentation. Additional endovaginal scanning was necessary due to incomplete visualization of the adnexal and endometrial structures by transabdominal scanning. COMPARISON: [facility], US, US PELVIC COMPLETE, 11/13/2023, 10:45. FINDINGS: Uterus: Uterus is anteverted and normal in size at 8.7 x 3.8 x 6.1 cm. The myometrium is homogeneous. The endometrium measures 23 mm combined thickness. The endometrium demonstrates a heterogeneous hypervascular mass which measures 2.3 x 0.9 x 2.1 cm. Ovaries: The right ovary measures 2.4 x 3.1 x 1.9 cm, with a calculated ovarian volume of 7.5 cc. The left ovary measures 1.5 x 2.2 x 1.8 cm, with a calculated ovarian volume of 3.2 cc. The ovaries have a normal sonographic appearance. Less than 12 follicles can be seen in each ovary. No adnexal masses are seen. Other: No pathologic free abdominal or pelvic fluid. IMPRESSION: 1. Hypervascular heterogeneous mass within the endometrial cavity suspicious for retained products of conception. We strive to produce accurate, complete, and clear reports of imaging services. To assist us in improving patient care, this report was composed using standard report templates and voice recognition software. Therefore, it may contain abnormal punctuation, insertions and/or omissions. Occasional wrong-word or sound-alike substitutions may occur. Though we review the report and make efforts to correct it, we do recommend that the report be read carefully in proper context to recognize any text inaccuracies. Dictated by: Tereza Parnell M.D. on 11/23/2023 at 8:16 Approved by: Tereza Parnell M.D. on 11/23/2023 at 8:17
== END ==
LOC: US 06:40
PROVIDERS: Referring Provider Specialist; Visit Provider Specialist
DX: O03.9 Complete or unspecified spontaneous abortion without complication (principal); O73.1 Retained portions of placenta and membranes, without hemorrhage
CPT/HCPCS: 76830; 76856

== ENCOUNTER 2023-12-27 23:40 | Emergency (ER) | payer OTHER, MEDICAID, SELFPAY ==
[2023-12-27 23:52] VITALS: BP 140/86; PULSE 121; RESP 22; TEMP 37.3; O2SAT 98; BMI 26.6
[2023-12-28 00:08] VITALS: PULSE 119; RESP 17; O2SAT 98
--- NOTE | 2023-12-28 00:25 | ED.ANXIETY ---
HPI - Anxiety General Chief Complaint: Anxiety Stated Complaint: Heart racing, faint, doom feeling, panic attack Time Seen by Provider: 12/28/23 00:06 Source: patient Mode of arrival: Ambulatory History of Present Illness HPI narrative: 23-year-old female with history of anxiety who states that this evening she was sitting on the couch. States she was at her normal state of health. States she felt like her heart started to beat fast. She was not feeling particularly anxious at the time but after feeling her heart beat fast this is what made her anxious. She then started to have more palpitations and her heart rate increased even more and then she became more anxious. Family members contacted 911. She was evaluated by EMS. Had a 4 lead EKG and was told that her heart was beating fast but everything else looked okay. She decided to come to the emergency department by private vehicle. At the time of my evaluation she states she is feeling much less anxious but is feeling like her heart is beating fast. Related Data Home Medications Medication Instructions Recorded Confirmed vitamin-ferrous sulfate tab PO 10/09/23 12/11/23 27 mg iron-folic acid 0.8 mg tablet Previous Rx's Medication Instructions Recorded progesterone micronized 200 mg 200 mg PO BID #60 caps 10/01/23 capsule ondansetron 4 mg disintegrating 4 mg PO Q6H PRN nausea and 10/16/23 tablet vomiting #20 tabs propranolol 10 mg tablet 10 mg PO BID PRN 12/28/23 Palpitations/tachycardia #20 tabs Allergies Allergy/AdvReac Type Severity Reaction Status Date / Time lavender (Lavandula Allergy Intermediate Hives Verified 12/11/23 10:31 angustifolia) adhesive Allergy Mild Rash Verified 12/11/23 10:31 diphenhydramine AdvReac Fainting Verified 12/11/23 10:31 [From Benadryl] Review of Systems Constitutional Constitutional: Reports system reviewed and no additional complaints, except as documented Cardiovascular Cardiovascular: Reports system reviewed and no additional complaints, except as documented Respiratory Respiratory: Reports system reviewed and no additional complaints, except as documented Gastrointestinal Gastrointestinal: Reports system reviewed and no additional complaints, except as documented Psychiatric Psychiatric: Reports system reviewed and no additional complaints, except as documented Patient History Medical History Eczema GERD (gastroesophageal reflux disease) Shortness of breath Prolonged QT interval syndrome Miscarriage Lymph node disorder Family History (Updated 10/09/23 @ 12:24 by Ailyn Celaya RN) Father Heart disease Gum disease Family estrangement Family/Other Diabetes mellitus Social History marital status: number of children: 0 household members: spouse lives independently: Yes caregiver/support person: No housing: house pets and animals: Yes (cat, dogs, snake) education level: college (some college) occupational status: employed ([employer]) current occupational exposures/hazards: Yes special leander needs: No travel history: over 6 months ago seatbelt use: always helmet use: Yes water heater temp set < 120 deg: Yes working smoke detector in home: Yes fire extinguisher in home: No carbon monox detector in home: Yes firearms in home: No do you feel safe at home: Yes Smoking Status: Never smoker second hand exposure: No alcohol intake: never substance use type: does not use during the past year weight has: remained stable well-balanced diet: daily or most days daily servings fruits/ve-4 caffeine: No (aggravates heart palpitations) Type(s) of exercise: weight lifting frequency: 5-6 times per week Smoking Status: Never smoker alcohol intake frequency: holidays/special occasions only Substance Use Type: does not use Exam Initial Vital Signs Initial Vital Signs: Vital Signs Temperature 99.1 F 12/27/23 23:52 Pulse Rate 121 H 12/27/23 23:52 Respiratory Rate 22 12/27/23 23:52 Blood Pressure 140/86 12/27/23 23:52 Pulse Oximetry 98 12/27/23 23:52 Oxygen Delivery Method Room Air 12/27/23 23:52 Resp Effort & Inspection: normal respiratory effort Auscultation: clear to auscultation bilaterally Cardio Rate: tachycardic Rhythm: regular rhythm GI Inspection: normal to inspection and non-distended Skin General: no rashes or lesions noted Neuro General: patient alert, patient awake and moves all extremities Extrem General: normal to inspection Course Orders Ordered: ED Orders 12/28/23 00:07 EKG-12 Lead Stat Discontinued Medications Propranolol HCl (Propranolol 10 Mg Tablet) 10 mg PO NOW ONE Stop: 12/28/23 00:29 Last Admin: 12/28/23 00:35 Dose: 10 mg Documented By: CRUZ Vital Signs Vital signs: Vital Signs - 8 hr 12/27/23 23:52 12/28/23 00:08 12/28/23 00:30 Temperature 99.1 F Pulse Rate 121 H 119 H 109 H Respiratory Rate 22 17 21 Blood Pressure 140/86 Pulse Oximetry 98 98 98 Oxygen Delivery Method Room Air 12/28/23 00:35 12/28/23 00:35 12/28/23 01:00 Temperature Pulse Rate 109 H 95 H Respiratory Rate 17 16 Blood Pressure 132/75 Pulse Oximetry 98 97 Oxygen Delivery Method Room Air Room Air 12/28/23 01:00 Temperature Pulse Rate Respiratory Rate Blood Pressure 118/76 Pulse Oximetry Oxygen Delivery Method MDM - Anxiety ECG Data Attestation: I personally reviewed and interpreted this ECG as follows: Interpretation: Sinus tachycardia Ventricular rate of 123 Normal axis Normal QRS QTC [address] T wave changes MDM Narrative Medical decision making narrative: Patient is calm. Does not appear anxious. Is tachycardic. Sinus tachycardia. Normal QTC. Patient was given propranolol. Heart rate improved. States she feels much better. States she has had propranolol in the past and that seems to have worked for her. Will send home with a prescription for propranolol that she can use as needed patient was given return precautions. She expressed understanding and agreement. Discharge Plan Departure Patient Disposition: Home Clinical Impression: Heart palpitations, Acute anxiety Instructions: DI for Anxiety -- Adult Activity Restrictions/Additional Instructions: A prescription was sent choice. You can use it as needed if you feel like your heart started to beat fast sometime in the future. Continue all other medications as directed. Contact your primary doctor for follow-up. Return to the emergency department for new symptoms. Prescriptions: New propranolol 10 mg tablet 10 mg PO BID PRN (Reason: Palpitations/tachycardia) Qty: 20 0RF No Action progesterone micronized 200 mg capsule 200 mg PO BID Qty: 60 2RF ondansetron 4 mg tablet,disintegrating 4 mg PO Q6H PRN (Reason: nausea and vomiting) Qty: 20 2RF vit-ferrous sulfat-FA 27 mg iron- 0.8 mg tablet PO Referrals: ProviderVickie [Primary Care Provider] - Stand Alone Forms: Patient Portal/API
[2023-12-28 00:30] VITALS: PULSE 109; RESP 21; O2SAT 98
[2023-12-28 00:35] VITALS: BP 132/75; PULSE 109; RESP 17; O2SAT 98
[2023-12-28] MEDS: PROPRANOLOL 10 MG TABLET PO (00:35)
[2023-12-28 01:00] VITALS: BP 118/76; PULSE 95; RESP 16; O2SAT 97
[2023-12-28 01:30] VITALS: BP 116/69; PULSE 88; RESP 18; O2SAT 98
== END 2023-12-28 01:35 | disposition home or self-care (01) ==
PROVIDERS: Emergency Provider Emergency Medicine
DX: R00.2 Palpitations (principal); F41.9 Anxiety disorder, unspecified; R00.0 Tachycardia, unspecified
CPT/HCPCS: 93005; 99283

== ENCOUNTER → 2024-01-23 07:31 | Outpatient (CLI) | payer OTHER, MEDICAID, SELFPAY ==
--- NOTE | 2024-01-23 07:36 | DI.US.S_ITS ---
PROCEDURE: US PELVIC COMPLETE INDICATIONS: FOLLOW UP MISCARRIAGE TECHNIQUE: Real-time scanning was performed of the pelvic organs, with image documentation. Additional endovaginal scanning was necessary due to incomplete visualization of the adnexal and endometrial structures by transabdominal scanning. COMPARISON: [facility], US, US PELVIC COMPLETE, 12/11/2023, 11:17. FINDINGS: Uterus: Uterus is anteverted and normal in size at 7.2 x 5.1 x 3.3 cm. The myometrium is heterogenous. The endometrium measures 4.5 mm combined thickness. No evidence of retained products of conception Ovaries: The right ovary measures 3.4 x 1.9 x 2.0 cm, with a calculated ovarian volume of 6.9 cc. The left ovary measures 3.6 x 2.0 by 1.9 cm, with a calculated ovarian volume of 7.1 cc. The ovaries have a normal sonographic appearance. Both ovaries contain greater than 12 follicles. No adnexal masses are seen. Other: No pathologic free abdominal or pelvic fluid. IMPRESSION: 1. No evidence of retained products of conception. Normal endometrial thickness. 2. Greater than 12 follicles in both ovaries. This finding has been correlated with polycystic ovarian syndrome in the proper clinical setting. Approved by: Moses Belle M.D. on 01/23/2024 at 10:57
== END ==
PROVIDERS: Referring Provider Obstetrics & Gynecology; Visit Provider Obstetrics & Gynecology
DX: O03.9 Complete or unspecified spontaneous abortion without complication (principal)
CPT/HCPCS: 76830; 76856